=== PATIENT | male | born 1975 | race Hispanic/Latino ===

== ENCOUNTER 2018-07-21 15:00 | Outpatient (RCR) | payer OTHER | END 2018-08-12 | LOC: PT 15:00 | PROVIDERS: ATTEND Orthopaedic Surgery | DX: M75.21 Bicipital tendinitis, right shoulder (principal); M75.101 Unspecified rotator cuff tear or rupture of right shoulder, not specified as traumatic ==

== ENCOUNTER → 2018-10-03 | Day surgery (SDC) | payer OTHER ==
[2018-09-29 17:05] LABS: ANION GAP 11.2 mmol/L (8-16); BLOOD UREA NITROGEN 19 mg/dL (7-26); BUN/CREATININE RATIO 22 (6-25); CALCIUM 9.7 mg/dL (8.4-10.2); CARBON DIOXIDE 27 mmol/L (22-29); CHLORIDE 106 mmol/L (98-107); CREATININE, SERUM 0.86 mg/dL (0.72-1.25); EST GLOMERULAR FILTRATION RATE > 60 ML/MIN (60-); GLUCOSE 258 mg/dL (74-118); POTASSIUM 4.2 mmol/L (3.5-5.1); SODIUM 140 mmol/L (136-145)
[~2018-10-03] MED LIST: ACETAMINOP325 MG/10 PO; ACETAMINOPHEN 1000 MG/100 ML 100 ML IV ONE; BASALGAR SC; BUPIVACAINE 0.5%/EPI 30 ML SDV INJ ONE; CLINDAMYCIN PHOS 900MG/ 50ML 50 ML IV ONE; DEXAMETHASONE SOD PHOS INJ 4 MG/ML VIAL ONE; EPINEPHRINE HCL 1:1000 1ML 1 MG/ML AMP ONE; FENTANYL CITRATE/PF 100MCG/2 ML INJ ONE; GLYCOPYRROLATE INJ 1MG/ 5 ML SYR ONE; HUMALOG100 UNIT/1 SC; HYDROMORPHONE 2MG/ML 2 MG/ML ML ONE; INSULIN REGULAR, HUMAN 100 UNIT/1 ML 3ML VIAL ONE; KETOROLAC TROMETHAMINE 30 MG/ML VIAL ONE; LIDOCAINE 2% /EPINEPHRINE 20 ML SDV INJ ONE; LIDOCAINE HCL 2% LOCAL INJ 5 ML SDV VIAL INJ ONE; METOCLOPRAMIDE HCL 10 MG/2ML VIAL ONE; MIDAZOLAM HCL 2 MG/2 ML VIAL ONE; ONDANSETRON HCL INJ 2MG/ML 2ML 2 MG/ML VIAL ONE; PROMETHAZINE HCL (IM) 25 MG/ML VIAL ONE; PROPOFOL IV EMULSION 10 MG/ML 20 ML VIAL ONE; ROPIVACAINE 0.5% 5 MG/ML 30 ML SDV ONE; SEVOFLURANE INHAL SOLN 250 ML PEN BTL ONE
--- NOTE | 2018-10-03 11:27 | NUR ---
OPERATIVE NOTE- ORTHOPEDICS Date of Surgery:10/03/18 Preoperative diagnosis: Right Shoulder Rotator Cuff Impingement Syndrome, Biceps Tendinitis, Extensive Synovitis Postoperative diagnosis: Right Shoulder Rotator Cuff Impingement Syndrome, Biceps Tendinitis, Posterior Labral Tear, Extensive Synovitis Procedure performed: Right Shoulder Arthroscopic Subacromial Decompression, Acromioplasty, Posterior Labral Debridement, Extensive Debridement Surgeon: Tiffanie Stewart DO Complications: None Implants: None EBL: <10 cc Indications: Due to persistent pain and limitations on activity combined with findings on exam and imaging, the patient requests surgical treatment. Nonoperative care and alternative surgical options were reviewed. We agreed that this provided the best risk/benefit profile for this patient, understanding and accepting risks of recurrent//persistent symptoms, infection, bleeding, stiffness, neurological/vascular damage, failure to improve and anesthetic complication (as reviewed by anesthesia service). Findings: 1. Labrum Anterior erythema and posterior fraying without detachment 2. Cartilage Normal 3. Biceps - normal, no erythema 4. Rotator Cuff - Intact 5. Synovium - erythematous & hypertrophic 6. Bursa - hypertrophic 7. Acromion - Type two acromion 8. AC Joint - Normal Procedure:After greeting the patient in the holding area and confirming patient identity and laterality, the patient underwent satisfactory general anesthesia a nd preoperative antibiotics. The patient was placed in the beach chair position with the head and neck in neutral position, prominences well padded and the eyes well protected. The operative upper extremity and shoulder girdle were prepped and draped in sterile fashion. Diagnostic arthroscopy was p erformed through a posterior portal with probing via a portal through the rotator interval. The posterior joint was inspected with the scope through the anterior portal. The above findings were noted. Through the use of an arthroscopic shaver and electrocautery, loose and hypertrophic synovium was debrided. The posterior labrum was carefully probed and visualized demonstrating a frayed and erythematous tissue which was carefully debrided to a stable border and found to be well adhered to the posterior glenoid. A spinal needle was introduced into the areas of rotator cuff tear and a marking stitch was placed allowing demarcation when entering the subacromial space. The scope was withdrawn from the joint, and the scope was inserted into the subacromial space. Through the anterior portal and a posterolateral portal, an extensive bursectomy was performed providing visualization of the cuff tear and marking stitch. After careful delineation of the CA ligament and the acromial spur, through the use of the lexie, the acromial hook was removed and adequate decompression was confirmed through the cutting block technique. After achieving hemostasis, the arthroscopic fluid was extravasated the incisions and the were closed with monocryl, a sterile dressing applied followed by a shoulder sling. The patient was awakened and transferred to the P ACU in stable condition having tolerated the procedure well.
[2018-10-03 14:45] VITALS: BP 140/90
== END | disposition home or self-care (01) ==
LOC: OR 07:03
PROVIDERS: ATTEND Orthopaedic Surgery
DX: M75.41 Impingement syndrome of right shoulder (principal); E11.9 Type 2 diabetes mellitus without complications; Z88.0 Allergy status to penicillin; Z91.013 Allergy to seafood; M75.21 Bicipital tendinitis, right shoulder; M65.811 Other synovitis and tenosynovitis, right shoulder; S43.491A Other sprain of right shoulder joint, initial encounter; Z79.4 Long term (current) use of insulin
CPT/HCPCS: 29823; 29826; 36415 ×2; 80048; 82948; 93005; J0131; J0171; J1100; J1170; J1817; J1885; J2001 ×2; J2250; J2405; J2550; J2704; J2765; J2795; J3010; J3490